=== PATIENT | female | born 1965 | race African-American/Black ===

== ENCOUNTER 2017-10-02 16:44 | Emergency (ER) | payer SELFPAY ==
[~2017-10-02] VITALS: Ht 170.2 cm; Wt 101.0 kg
[~2017-10-02 16:44] MED LIST: ALBU8HFA IH; AMLO-512 PO; CARI350 PO; ESOM20CA31 PO; HYDR25TA PO; LABE200T PO; RIVA20TA PO; VERA120 PO
[2017-10-02] MEDS ORDERED: RANI150T7 PO (16:59)
[2017-10-02] MEDS ORDERED: CLON.3 PO (16:59)
[2017-10-02] MEDS ORDERED: PRED20 PO (16:59)
[2017-10-02] MEDS ORDERED: MONT10TA21 PO (16:59)
[2017-10-02] MEDS ORDERED: HYDR-4069 PO (16:59)
[2017-10-02] MEDS ORDERED: LORA10TA7 PO (16:59)
[2017-10-02] MEDS ORDERED: VERA120 PO (16:59)
[2017-10-02 20:25] VITALS: BP 145/72
== END 2017-10-02 20:36 | disposition home or self-care (01) ==
LOC: EMS 16:45
DX: M19.012 Primary osteoarthritis, left shoulder (principal); M17.12 Unilateral primary osteoarthritis, left knee; I10 Essential (primary) hypertension; J45.909 Unspecified asthma, uncomplicated; K21.9 Gastro-esophageal reflux disease without esophagitis; Z88.0 Allergy status to penicillin; V43.52XA Car driver injured in collision with other type car in traffic accident, initial encounter; Y92.410 Unspecified street and highway as the place of occurrence of the external cause; Y93.89 Activity, other specified; Y99.8 Other external cause status
CPT/HCPCS: 99284